=== PATIENT | male | born 1950 | race Caucasian/White ===

== ENCOUNTER 2019-04-29 19:01 | Observation (INO) | payer BC, MEDICARE ==
[2019-04-29] MEDS ORDERED: Acetaminophen 325 MG TAB PO PRN (19:59)
[2019-04-29] MEDS ORDERED: Senokot S 8.6-50 MG TAB PO PRN (19:59)
[2019-04-29 20:18] LABS: Troponin I 0.033 ng/mL (< 0.028)
--- NOTE | 2019-04-29 20:36 | HP ---
PRIMARY CARE PHYSICIAN: Jese Izquierdo MD. CHIEF COMPLAINT: Chest pain. HISTORY OF PRESENT ILLNESS: This is a very pleasant 69-year-old man, who was initially seen at [facility] for evaluation of pain in his right upper quadrant that radiates to his chest. Reports this has been going on for the last week or so, is intermittent, lasts anywhere from 2 to 10 minutes, feels like big gas bubble. Denies any nausea, diaphoresis, shortness of breath with it. Denies any dyspnea on exertion. Reports that he walked out to his mailbox which he says is pretty good distance and did not have the pain. He does report that he has been more tired than normal. Reports that he had a cardiac cath in 2004 and ended up with two stents. Reports at that time that he had pretty severe dyspnea on exertion with chest pain at that time. Reports that this pain is different. He does have a past medical history pertinent for hypertension, hyperlipidemia. The patient will be admitted to the observation unit for further risk stratification. REVIEW OF SYSTEMS: The patient reports chest pain. Right lower quadrant pain radiates up. Denies any diaphoresis, shortness of breath, or nausea. All other symptoms are reviewed and negative unless mentioned in the HPI. PAST MEDICAL HISTORY: Pertinent for hypertension, hyperlipidemia, coronary artery disease. PAST SURGICAL HISTORY: Cardiac cath with two stents. PSYCHIATRIC HISTORY: None. SOCIAL HISTORY: The patient lives at home with his family. He does not smoke, but he does chew tobacco. Drinks beer about 4 to 5 every day. ALLERGIES: NONE. CURRENT MEDICATIONS: In the ER system; 1. Aspirin 81 mg p.o. daily. 2. Lipitor 10 mg p.o. daily. 3. Metoprolol 25 mg p.o. once a day. PHYSICAL EXAMINATION: VITAL SIGNS: Blood pressure 145/95, pulse 63, respirations 18, pO2 sats are 98% on room air, temp is 98.3. CONSTITUTIONAL: The patient is alert and oriented to person, place, and time. He is in no apparent distress. HEENT: Head is atraumatic and normocephalic. Eyes; eyelids are normal to inspection. Pupils are equally round and reactive to light. Extraocular muscles are intact. ENT; mouth exam is normal. Mucous membranes are moist. NECK: Normal range of motion. Trachea is midline. RESPIRATORY/CHEST: Breath sounds are clear. Chest movement is symmetrical. CARDIOVASCULAR: Heart rate regular rate and rhythm. Heart sounds are normal. ABDOMEN: There is no tenderness. Bowel sounds are heard. No guarding. No rebound. BACK: Normal range of motion. No CVA tenderness. EXTREMITIES: Upper extremity, normal range of motion. Inspection is normal. Radial pulses are normal. Lower extremity, normal inspection, normal range of motion. Pedal pulses are equal. NEUROLOGIC: The patient is oriented to person, place, and time. No focal motor sensory deficits are found. SKIN: Warm, dry, normal in color. DIAGNOSTIC DATA: EKG in the emergency room shows sinus bita, beats per minute 56, Q-waves are normal, axis is normal. First troponin is undetectable. Labs are grossly unremarkable. PLAN AND ASSESSMENT: 1. Chest pain, rule out. The patient will undergo a stress test in the morning. Troponins will be trended. His pain is primarily in the right upper quadrant and the patient does drink alcohol every day. We will get a right upper quadrant ultrasound. Lipase was negative. Liver enzymes are unremarkable. 2. Hypertension. We will continue home medications. We will trend. 3. Hyperlipidemia. Get a fasting lipid in the morning. Continue home medications. 4. Alcohol use. We will order a banana bag x1 DORA protocol. 5. Smoking cessation counseling provided. 6. GI and DVT prox prophylaxis has been started. 7. Hospital course is dependent on clinical findings. Job ID: [id number]
[2019-04-29 20:52] VITALS: BMI 27.0
[2019-04-29] MEDS ORDERED: Multivitamins, Adult 10 ML, Folic Acid 1 MG, Thiamine HCl 100 MG in Dextrose 5 %-0.45 %... IV SCH (21:00)
[2019-04-29] MEDS: Famotidine 20 MG TAB PO SCH (23:09)
[2019-04-29 23:14] LABS: Troponin I 0.016 ng/mL (< 0.028)
[2019-04-30 06:12] LABS: #Eosinphils 0.7 thou/uL (0.0-0.7); #Neutrophils 5.6 thou/uL (1.40-6.50); %Basophils 0.4 % (0.0-1.0); %Eosinophils 7.6 % (0.0-10.0); %Lymphocytes 21.4 % (21.0-51.0); %Monocytes 10.7 % (0.0-10.0); %Neutrophils 59.9 % (42.0-75.0); Hemoglobin 13.5 g/dL (14.0-18.0); Mean Corpuscular HGB CONC 33.9 g/dL (32.0-36.0); Mean Corpuscular Hemoglobin 33.1 pg (27.0-31.0); Mean Corpuscular Volume 97.6 fL (78.0-98.0); Mean Platelet Volume 10.3 fL (7.4-10.4); Platelet Count 151 thou/uL (130-400); Red Blood Cell (RBC) Count 4.09 mill/uL (4.70-6.10); White Blood Cell (WBC) Count 9.3 thou/uL (4.8-10.8)
[2019-04-30 06:32] LABS: ALT (SGPT) 13 U/L (8-55); AST (SGOT) 14 U/L (5-34); Albumin 3.8 g/dL (3.4-4.8); Alkaline Phosphatase 47 U/L (40-110); Anion Gap 11 mmol/L (10-20); BUN (Urea Nitrogen) 13 mg/dL (8.4-25.7); Bilirubin, Total 0.6 mg/dL (0.2-1.2); Calc. Creatinine Clearance 116 mL/min (70-130); Calcium 9.4 mg/dL (7.8-10.44); Carbon Dioxide 26 mmol/L (23-31); Chloride 104 mmol/L (98-107); Cholesterol 172 mg/dl (< 200 Desired); Estimated GFR-MDRD Greater than 90; Globulin 3.1 g/dL (2.4-3.5); Glucose 113 mg/dL (80-115); HDL Cholesterol 57 mg/dL (>60 Neg Risk); LDL Cholesterol, Calculated 96 mg/dL; Potassium 3.7 mmol/L (3.5-5.1); Protein, Total 6.9 g/dL (5.8-8.1); Sodium 137 mmol/L (136-145); Triglycerides 96 mg/dL (Less than 150)
[2019-04-30] MEDS ORDERED: Aspirin 325 MG TAB PO SCH (09:00)
[2019-04-30] MEDS ORDERED: Enoxaparin Sodium 40 MG/0.4 ML SYRINGE SC SCH (09:00)
--- NOTE | 2019-04-30 09:21 | ULT ---
Sonogram right upper quadrant HISTORY: Right upper quadrant pain. FINDINGS: Multiple shadowing stones within the gallbladder lumen. No gallbladder wall thickening or p ericholecystic fluid. Common duct is 0.4 cm. Liver unremarkable without focal mass or intrahepatic biliary dilatation. No free fluid. IMPRESSION: Cholelithiasis. No evidence of acute biliary obstruction.
[2019-04-30] MEDS: Famotidine 20 MG TAB PO SCH (12:19)
[2019-04-30] MEDS: Prevnar 13-Val Conj/PF 0.5 ML SYRINGE IM ONE ×2 (12:19→12:21)
--- NOTE | 2019-04-30 13:00 | NM ---
Radionucleotide stress and rest myocardial perfusion scan with CT attenuation correction and SPECT im aging Left ventricular wall motion evaluation and ejection fraction HISTORY: Chest pain. FINDINGS: Isaac protocol. Total test time 6:00. There is heterogeneous uptake of radiotracer throughout the left ventricular myocardium. No focal per fusion defect or reversibility. QGS analysis of gated SPECT images shows no focal wall motion abnormalities. TID equals 1.0. LHR equals 37%. Left ventricular ejection fraction calculated at 60%. IMPRESSION: Normal myocardial perfusion scan. Normal LVEF.
[2019-04-30 16:33] VITALS: BP 161/76; TEMP 98
--- NOTE | 2019-04-30 18:01 | DIS ---
DATE OF ADMISSION: 04/29/2019 DATE OF DISCHARGE: 04/30/2019 DISCHARGE DIAGNOSES: 1. Chest pain, noncardiac. 2. Cholelithiasis without obstruction. 3. Hypertension, stable. 4. Hyperlipidemia. 5. Coronary artery disease, chronic and stable. 6. Alcohol use. 7. Smokeless tobacco use. CONSULTATIONS: None. PERTINENT LABORATORY AND X-RAY FINDINGS: Complete metabolic profile within normal limits. Troponin I ranged between 0.010 to 0.033. TSH 4.76. Total cholesterol 172, triglycerides 96, HDL 57, and LDL 96. CBC within normal limits. Portable chest x-ray dated 04/29/2019, showed mild cardiomegaly. Abdominal ultrasound dated 04/30/2019, showed cholelithiasis without evidence of gallbladder wall thickening or obstruction. Cardiolite stress test dated 04/30/2019, showed no evidence of reversible or fixed ischemia with calculated ejection fraction of 60%. HOSPITAL COURSE: The patient was initially observed on the telemetry unit after presenting with chest pain. The patient with prior history of coronary artery disease, status post cardiac stent placement x2, proceeding to Cardiolite stress testing showing no evidence of reversible or fixed ischemia with calculated ejection fraction of 60%. The patient was also noted with cholelithiasis on abdominal ultrasound, however, no specific evidence to suggest gallbladder wall thickening or common bile duct obstruction during the study. Telemetry monitoring showed sinus mechanism without acute arrhythmia or dysrhythmia and the patient overall remained clinically stable. I have examined the patient at the time of discharge and discussed followup instructions. The patient verbalized understanding and in agreement and ready for discharge on 04/30/2019. DISCHARGE MEDICATIONS: 1. Enteric-coated aspirin 81 mg p.o. daily. 2. Lisinopril/hydrochlorothiazide 20/12.5 mg 1 tablet p.o. daily. 3. Metoprolol-XL 25 mg p.o. daily. FOLLOWUP: The patient may follow up with his primary care provider, Dr. Jese Izquierdo, within 7 days of discharge. CONDITION ON DISCHARGE: Stable. ACTIVITY: Ad-rayo. DIET: Heart healthy. CODE STATUS: Full. DISPOSITION: Home on 04/30/2019. Job ID: [id number]
--- NOTE | 2019-05-06 12:16 | EKG ---
Test Reason : CHEST PAIN Blood Pressure : / mmHG Vent. Rate : 056 BPM Atrial Rate : 056 BPM P-R Int : 174 ms QRS Dur : 088 ms QT Int : 394 ms P-R-T Axes : 027 -05 -05 degrees QTc Int : 380 ms Sinus bradycardia with sinus arrhythmia Otherwise normal ECG Confirmed by SANTIAGO CABAN MD ([id number]), city editor REZA CASTANON ([id number] on 05/06/2019 12:16:28 PM Referred By: ARSH Confirmed By:SANTIAGO CABAN MD
== END 2019-04-30 17:32 | disposition home or self-care (01) ==
LOC: ERS 19:01 → 2SW 19:25
PROVIDERS: ADMIT Internal Medicine; ATTEND Internal Medicine
DX: R07.89 Other chest pain (principal); K80.20 Calculus of gallbladder without cholecystitis without obstruction; I10 Essential (primary) hypertension; E78.5 Hyperlipidemia, unspecified; I25.10 Atherosclerotic heart disease of native coronary artery without angina pectoris; F17.220 Nicotine dependence, chewing tobacco, uncomplicated; Z79.82 Long term (current) use of aspirin; Z79.899 Other long term (current) drug therapy; Z95.5 Presence of coronary angioplasty implant and graft
CPT/HCPCS: 36415; 76705; 78452; 80053; 80061; 84443; 85025; 90471; 90670; 93005; 93017; 94760; 96365; 96366; A9500; G0009; G0378; J1650; J3411; J7042